=== PATIENT | female | born 1965 | race African-American/Black ===

== ENCOUNTER 2021-06-18 21:14 | Emergency (ER) | payer MEDICARE ==
[~2021-06-18] VITALS: Ht 165.1 cm; Wt 102.0 kg
[2021-06-18 22:05] LABS: APPEARANCE,URINE TURBID (CLEAR); GLUCOSE, URINE (UA) NEGATIVE (NEGATIVE); KETONES,URINE 15 mg/dL (NEGATIVE); LEUKOCYTE ESTERASE ,URINE LARGE (NEGATIVE); NITRATE,URINE POSITIVE (NEGATIVE); OCCULT BLOOD,URINE MODERATE (NEGATIVE); PROTEIN,URINE SEE CONFIRM (NEGATIVE)
[2021-06-18 22:07] LABS: BILIRUBIN,URINE PRELIM. POSITIVE (NEGATIVE)
[2021-06-18 22:19] LABS: SQUAMOUS EPITHELIAL CELL,UR Few /LPF (None Seen); SULFOSALICYLIC ACID,URINE 3+ (Negative)
[2021-06-18 22:20] LABS: BACTERIA,URINE Moderate /HPF (None Seen); WBC,URINE >100 /HPF (0-5)
[2021-06-18 22:37] LABS: BASOPHILS % (AUTO) 0.3 % (0.0-2.0); EOSINOPHILS % (AUTO) 0.3 % (1.0-6.0); HEMATOCRIT 37.8 % (36-46); HEMOGLOBIN 12.3 g/dL (12.0-16.0); LYMPHOCYTES # (AUTO) 0.4 K/uL (1.0-4.8); LYMPHOCYTES % (AUTO) 7.1 % (22.0-44.0); MEAN CORPUSCULAR HEMOGLOBIN 26.2 pg (26.0-34.0); MEAN CORPUSCULAR HGB CONC 32.6 G/dL (31.0-37.0); MEAN CORPUSCULAR VOLUME 80 fL (80-100); MONOCYTES # (AUTO) 0.5 K/uL (0.1-1.0); MONOCYTES % (AUTO) 9.3 % (2.0-9.0); NEUTROPHILS # (AUTO) 4.6 K/uL (1.8-7.7); PLATELET COUNT (AUTO) 177 K/uL (150-450); RED BLOOD CELL COUNT(AUTO) 4.71 MIL/uL (4.00-5.20); RED CELL DISTRIBUTION WIDTH 14.8 % (11.5-14.5)
[2021-06-18 22:52] LABS: CALCIUM, TOTAL 8.9 mg/dL (8.8-10.5); CREATININE 1.37 mg/dL (0.60-1.30); POTASSIUM 3.7 mmol/L (3.5-5.1)
[2021-06-18 22:56] LABS: ALBUMIN 3.3 g/dL (3.4-5.0)
[2021-06-18 23:15] LABS: BILIRUBIN,TOTAL 0.7 mg/dL (0.1-1.0); TOTAL PROTEIN, SERUM 7.8 g/dL (6.4-8.2)
[2021-06-18] MEDS ORDERED: ACETAMINOPHEN 500 MG TABLET PO ONE (23:30)
[2021-06-18] MEDS ORDERED: CefTRIAXone 1 GM/DEXTROSE 50 ML IV ONE (23:30)
[2021-06-18] MEDS ORDERED: KETOROLAC TROMETHAMINE 30 MG/ML VIAL IVP ONE (23:30)
[2021-06-18] MEDS ORDERED: SODIUM CHLORIDE 0.9% 1,000 ML IV ONE (23:30)
[2021-06-18] MEDS ORDERED: SODIUM CHLORIDE 0.9% 3,050 ML IV ONE (23:30)
[2021-06-18] MEDS ORDERED: 0.9% SODIUM CHLORIDE 10 ML SYRINGE IVP PRN (23:30)
[2021-06-19 00:07] LABS: PROTHROMBIN TIME 10.8 SEC (9.4-11.6)
[2021-06-19 01:58] VITALS: BP 121/74
== END 2021-06-19 03:25 | disposition home or self-care (01) ==
LOC: EMS 21:17
DX: N12 Tubulo-interstitial nephritis, not specified as acute or chronic (principal); Z86.73 Personal history of transient ischemic attack (TIA), and cerebral infarction without residual deficits
CPT/HCPCS: 36415; 80053; 81001; 83605; 83690; 84702; 85025; 85610; 87040; 87077; 87086; 93005; 96361; 96365; 96366; 96375; 99284; J0696; J1885; J7030; 81002; 87186; 96374

== ENCOUNTER 2023-12-09 20:19 | Emergency (ER) | payer MEDICARE ==
[~2023-12-09] VITALS: Ht 165.1 cm; Wt 100.0 kg
[~2023-12-09 20:19] MED LIST: ATOR10TA PO; CLOP75TA60 PO; FERR325T27 PO; LOSA-382 PO
[2023-12-09 20:30] VITALS: TEMP 98.6
[2023-12-09 22:57] LABS: INFLUENZA A-RTPCR,COMBO NEGATIVE (NEGATIVE); INFLUENZA B-RTPCR,COMBO NEGATIVE (NEGATIVE); RESPIRATORY SYNCYTIAL VRS-PCR NEGATIVE (NEGATIVE); SARS COVID19 RTPCR, COMBO NEGATIVE (NEGATIVE)
[2023-12-09] MEDS ORDERED: BENZ-227 PO ×2 (23:00→23:15)
[2023-12-09] MEDS ORDERED: ALBU18HF12 IH ×2 (23:00→23:15)
[2023-12-09 23:03] VITALS: BP 133/85; PULSE 88; RESP 18
== END 2023-12-09 23:06 | disposition home or self-care (01) ==
LOC: EMS 20:24
DX: J40 Bronchitis, not specified as acute or chronic (principal); J06.9 Acute upper respiratory infection, unspecified; I10 Essential (primary) hypertension; Z20.822 Contact with and (suspected) exposure to COVID-19
CPT/HCPCS: 99284; 0241U; 71045